=== PATIENT | female | born 1960 | race Hispanic/Latino ===

== ENCOUNTER → 2024-12-15 | Outpatient (CLI) | payer OTHER ==
--- NOTE | 2024-12-15 09:43 | HMCIMG ---
US ABDOMINAL COMPLETE HISTORY: Bile duct stone COMPARISON: None TECHNIQUE: Multiple transverse and longitudinal ultrasound images of the abdomen were obtained. FINDINGS: Aorta is not well seen due to overlying bowel gas. Flow is seen in the inferior vena cava. The visualized portion of the pancreas is within normal limits. Liver measures 15 cm. Liver is echogenic consistent with liver parenchymal disease. No gallstone is seen. Common duct measures 6 mm. No evidence of gallbladder wall thickening is seen. Both kidneys are seen. Right kidney measures 10 x 5.2 x 4.7 cm. Left kidney measures 10.3 x 6 x 4.2 cm. No hydronephrosis is seen of the both kidneys. The spleen is grossly unremarkable. IMPRESSION: 1. No gallstone or ductal dilatation is seen. 2. No hydronephrosis is seen.
== END | disposition home or self-care (01) ==
LOC: RAH 08:02
PROVIDERS: ATTEND Internal Medicine
DX: K80.50 Calculus of bile duct without cholangitis or cholecystitis without obstruction (principal)
CPT/HCPCS: 76700